=== PATIENT | female | born 1960 | race Caucasian/White ===

== ENCOUNTER 2017-10-31 08:50 | Day surgery (SDC) | payer OTHER ==
[~2017-10-31] VITALS: Ht 162.6 cm; Wt 118.6 kg
[~2017-10-31 08:50] MED LIST: CALCA400CH; Dicloxacillin500 MG; Hair, Skin & N1 EACH; MELO7.5; TERB250; Vitamin D400 UNI2; [UNRECOGNIZED DRUG - OTHER]
[2017-10-31] MEDS ORDERED: ASPI81CH PO (09:35)
[2017-10-31] MEDS ORDERED: PROBIOTIC1 EAC1 PO (09:36)
[2017-10-31] MEDS ORDERED: KRILL OIL500 MG PO ×2 (09:36)
[2017-10-31] MEDS ORDERED: ASCO500 PO (09:37)
== END 2017-10-31 12:00 | disposition home or self-care (01) ==
LOC: ORSCSDS 08:50
PROVIDERS: Internal Medicine Gastroenterology
PROC: 0DBP8ZX Excision of Rectum, Via Natural or Artificial Opening Endoscopic, Diagnostic (ICD-10-PCS; principal; 2017-10-31 10:15)
DX: R10.32 Left lower quadrant pain (principal); D12.8 Benign neoplasm of rectum; K64.8 Other hemorrhoids; Z86.010 Personal history of colon polyps
CPT/HCPCS: 88305; J2405; J7120

== ENCOUNTER → 2021-10-03 | Outpatient (CLI) | payer OTHER ==
[~2021-10-03] MED LIST changes: +ASCO500 PO; +ASPI81CH PO; +KRILL OIL500 MG PO; +PROBIOTIC1 EAC1 PO
== END | disposition home or self-care (01) ==
LOC: LAB SHORT 15:16
DX: D48.5 Neoplasm of uncertain behavior of skin (principal)
CPT/HCPCS: 88305

== ENCOUNTER 2022-09-12 06:42 | Day surgery (SDC) | payer OTHER ==
[~2022-09-12] VITALS: Ht 162.6 cm; Wt 107.0 kg
[~2022-09-12 06:42] MED LIST changes: -Hair, Skin & N1 EACH; +Hair, Skin & N1 EACH PO; +MCT OIL PO; +NAPR220 PO; +TURMERIC ROOT5000 GM PO; +VITAMIN D310 MC4 PO; +ZINC220 PO
--- NOTE | 2022-09-12 07:17 | NUR ---
History, Chart, Medications and Allergies reviewed before start of procedure. Patient confirms NPO status and agrees with scheduled surgery. Lungs clear T/O to Auscultation.
--- NOTE | 2022-09-12 10:33 | NUR ---
09/12/22 Jose3 Kelsie Ulrich PATIENT RECEIVED VANCO 1GM IN THE PREOP SETTING PRIOR TO ARRIVING IN THE OR.
--- NOTE | 2022-09-12 18:10 | NUR ---
SHIFT SUMMARY PT HAS DONE WELL POST OP. WORKED w/ THERAPY. UP TO CHAIR FOR DINNER. PAIN WELL CONTROLLED.
[2022-09-13 06:21] LABS: Bun/Creatinine Ratio 24.4 (12.0-20.0); Calcium, Blood 8.6 mg/dL (8.5-10.1); Creatinine, Blood 0.66 mg/dL (0.40-1.00); Potassium, Blood 5.2 mmol/L (3.5-5.5)
[2022-09-13] MEDS ORDERED: Percocet 5-3251 EACH PO (07:13)
[2022-09-13] MEDS ORDERED: ASPI81CH PO (07:13)
[2022-09-13 07:27] LABS: BASOPHILS ABSOLUTE AUTO 0.02 K/mm3 (0.00-0.23); BASOPHILS PERCENT AUTO 0 % (0-2); EOSINOPHILS PERCENT AUTO 0 % (0-6); Hematocrit 37.5 % (33.0-51.0); Hemoglobin 12.7 g/dL (11.5-16.0); IMMATURE GRAN ABSOLUTE AUTO 0.05 K/mm3 (0.00-0.10); IMMATURE GRAN PERCENT AUTO 0 % (0-1); LYMPHOCYTES ABSOLUTE AUTO 1.62 K/mm3 (0.84-5.20); LYMPHOCYTES PERCENT AUTO 9 % (21-46); MONOCYTES ABSOLUTE AUTO 1.28 K/mm3 (0.16-1.47); MONOCYTES PERCENT AUTO 7 % (4-13); Mean Corpuscular HGB 29.4 pg (26.0-34.0); Mean Corpuscular HGB Conc 33.9 g/dL (31.5-36.5); Mean Corpuscular Volume 87 fL (80-100); Mean Platelet Volume 10.9 fL (9.1-12.4); NEUTROPHILS ABSOLUTE AUTO 16.18 K/mm3 (1.96-9.15); NEUTROPHILS PERCENT AUTO 84 % (41-73); Platelet Count 287 K/mm3 (150-400); RDW Coefficient Variation 13.3 % (11.7-14.2); RDW Standard Deviation 42.5 fL (35.1-46.3); Red Blood Cell Count 4.32 M/mm3 (3.80-5.20); White Blood Cell Count 19.15 K/mm3 (4.00-11.30)
--- NOTE | 2022-09-13 09:47 | NUR ---
DISCHARGE NOTE: PATIENT WAS EDUCATED ON DISCHARGE INSTRUCTIONS. SHE VERBALIZED UNDERSTANDING OF INSTRUCTIONS AND HAD NO FURTHER QUESTIONS AT THIS TIME. PAIN IS MANAGED WITH ORAL PAIN MEDICATIONS. IV WAS TAKEN OUT AND WNL. HER LEFT KNEE HAS AN AQUACEL THAT IS C/D/I. DENIES NUMBNESS AND TINGLING. SHE IS A SBA WITH FWW AND GAIT BELT. SHE IS TOLERATING PO INTAKE AND IS VOIDING. PATIENT IS DRESSED AND HAS ITEMS IN THE ROOM GATHERED. SHE IS WAITING FOR HER AND ONCE HE IS HERE SHE WILL BE WHEELCHAIRED OUT TO HIS CAR TO BE TAKEN HOME.
--- NOTE | 2022-09-13 10:17 | NUR ---
PATIENT IS BEING WHEELCHAIRED DOWN TO HER HUSBANDS CAR TO BE TAKEN HOME.
== END 2022-09-13 10:18 | disposition home or self-care (01) ==
LOC: ORSCMMR 06:42 → ORD 08:15 → ORSCMMR 08:15 → SURS 13:11 → ORSCMMR 09-13 10:18
PROVIDERS: Orthopaedic Surgery
PROC: 0SRD0JA Replacement of Left Knee Joint with Synthetic Substitute, Uncemented, Open Approach (ICD-10-PCS; principal; 2022-09-12 08:15)
DX: M17.12 Unilateral primary osteoarthritis, left knee (principal); E66.01 Morbid (severe) obesity due to excess calories; Z68.41 Body mass index [BMI] 40.0-44.9, adult
CPT/HCPCS: 36415; 73560-LT; 80048; 85025; 97110; 97116; 97162; A9270; C1776; J0171; J0690; J0735; J1100; J1885; J2250; J2405; J2704; J2795; J3010; J3370; J7120

== ENCOUNTER → 2023-04-10 | Outpatient (CLI) | payer OTHER ==
[~2023-04-10] MED LIST changes: +Percocet 5-3251 EACH PO
== END ==
LOC: PLD 15:21 → LAB SHORT 15:21
DX: D48.5 Neoplasm of uncertain behavior of skin (principal)
CPT/HCPCS: 88305

== ENCOUNTER → 2023-06-07 | Outpatient (CLI) | payer OTHER | END | disposition home or self-care (01) | LOC: LAB SHORT 15:07 → LAB 15:07 | DX: L08.0 Pyoderma (principal) | CPT/HCPCS: 87070; 87077; 87147; 87186; 87205 ==

== ENCOUNTER → 2023-06-28 | Outpatient (CLI) | payer OTHER | LOC: LAB SHORT 13:45 → LAB 13:45 | DX: L08.0 Pyoderma (principal) | CPT/HCPCS: 87070; 87205 ==

== ENCOUNTER 2023-11-13 08:52 | Day surgery (SDC) | payer MEDICARE, OTHER ==
[~2023-11-13] VITALS: Ht 160 cm; Wt 111.7 kg
[2023-11-13] VITALS (8 sets, daily range): BP systolic 126–153; BP diastolic 68–89
[~2023-11-13 08:52] MED LIST changes: +IBUP800 PO; +QUERCETIN500 MG PO
[2023-11-13] MEDS ORDERED: Acetaminophen 500 MG Tab PO SCH ×2 (09:00→16:00)
[2023-11-13] MEDS ORDERED: Lactated Ringer's 1,000 ML IV SCH ×2 (09:00→11:20)
[2023-11-13] MEDS ORDERED: OxyCODONE HCL 10 MG TABCR PO SCH (09:00)
[2023-11-13] MEDS ORDERED: Ropivacaine 0.5% HCl/Pf 67.75 MG,EPINEPHrine HCL 0.25 MG,Ketorolac Tromethamine 15 MG,C... INFIL SCH (09:00)
[2023-11-13] MEDS ORDERED: Chlorhexidine Mouth Care 15 ML UDC MT SCH (09:00)
[2023-11-13] MEDS ORDERED: CeFAZolin Sodium 2,000 MG in NS 50 ML IV SCH ×2 (09:25→19:45)
[2023-11-13] MEDS ORDERED: NS IV SCH (09:25)
[2023-11-13] MEDS ORDERED: TRANEXAMIC ACID IV SCH (09:25)
--- NOTE | 2023-11-13 09:58 | NUR ---
Ambulatory in Day Surgery History, Chart, Medications and Allergies reviewed before start of procedure.Lungs clear T/O to Auscultation. Patient confirms NPO status and agrees with scheduled surgery. Pre-Op teaching done. Pt verbalizes understanding. Surgical site prepped with 2% Chlorhexidine cloth wipe.
[2023-11-13] MEDS ORDERED: Bisacodyl 10 MG Supp PR PRN (11:15)
[2023-11-13] MEDS ORDERED: Promethazine HCl 25 MG Tab PO PRN (11:15)
[2023-11-13] MEDS ORDERED: Magnesium Hydroxide Conc 10 ML UDC PO PRN (11:20)
[2023-11-13] MEDS ORDERED: Ondansetron HCl 2 MG / ML 2ML Vial IV PRN (11:20)
[2023-11-13] MEDS ORDERED: Metoclopramide HCl 5MG / ML 2ML Vial IV PRN (11:20)
[2023-11-13] MEDS ORDERED: OxyCODONE HCL 5 MG TAB PO PRN ×2 (11:20)
[2023-11-13] MEDS ORDERED: DiphenhydrAMINE HCL 25 MG Cap PO PRN (11:25)
[2023-11-13] MEDS ORDERED: HYDROmorphone HCl/Pf 1MG SYR IV PRN (11:25)
[2023-11-13] MEDS ORDERED: FLU VACC QS2023-24(6MOS UP)/PF 60 MCG/0.5 ML SYRINGE IM SCH (11:25)
[2023-11-13] MEDS ORDERED: FentaNYL Citrate 50 MCG/ML 2 ML Injection ONE (11:34)
[2023-11-13] MEDS ORDERED: propofoL 40 ML IV ONE (11:34)
[2023-11-13] MEDS ORDERED: Metoclopramide HCl 5MG / ML 2ML Vial ONE (12:12)
[2023-11-13] MEDS ORDERED: Dexamethasone Sod Phos 10 MG/ML 1ML VIAL ONE (12:12)
[2023-11-13] MEDS ORDERED: Ondansetron HCl 2 MG / ML 2ML Vial ONE (12:12)
--- NOTE | 2023-11-13 12:25 | NUR ---
11/13/23 1225 Deirdre Miranda SPINAL NERVE BLOCK COMPLETED BY DR. PRESTON UPON ENTRY TO OR. PT TOLERATED WELL. LMA ALSO PLACED BY DR. LUONG
--- NOTE | 2023-11-13 14:33 | NUR ---
Pt. is awake and welcomes my visit. Pt. is pleasant. Nurse Matilde is present and informs me that Pt. is fresh out of suregery. Facilitate a life review. Begin to establish rapport when PT arrived. This director advertising excused himself and agreed with Pt. to return later.
[2023-11-13] MEDS ORDERED: Percocet 5-3251 EACH PO (16:58)
[2023-11-13] MEDS ORDERED: Aspir 8181 MG PO (16:59)
--- NOTE | 2023-11-13 17:28 | NUR ---
DISCHARGE SUMMARY S/P R TKA, AQUACEL CDI/ADRIAN/TEDS. A&OX4, VSS/RA, KOBE PO, VOIDING, AMB SBA FWW/GB IN ROOM AND IN HALLWAY, UP TO CHAIR, PAIN TREATED PER EMAR, IV DC'D. DISCUSSED WITH TOP BOTTOM ATTACHING MACHINE OPERATOR PT DESIRE TO GO HOME PT REPORTS FEELS STABLE AND READY FOR DISCHARGE. DC INS PROVIDED. PT AND REP UNDERSTANDING THOSE INSTRUCTIONS. LEFT FLOOR VIA WC WITH ONLINE USER EXPERIENCE STRATEGIST TO GO HOME WITH WITH ALL PERSONAL POSSESSIONS INCLUDING DC PACKET, AQUACEL DRESSINGS, POLAR MAXWELL; HAD SCRIPTS FILLED AND MEDS ARE IN HIS POSSESSION.
[2023-11-13] MEDS ORDERED: Ketorolac Tromethamine 15mg Vial IV SCH (18:00)
[2023-11-13] MEDS ORDERED: Docusate Sodium 100 MG Cap PO SCH (21:00)
[2023-11-13] MEDS ORDERED: QUERCETIN 500 MG PO SCH (21:00)
[2023-11-13] MEDS ORDERED: Zinc Sulfate 220 MG Cap (Provides 50MG) PO SCH (21:00)
[2023-11-14] MEDS ORDERED: Multivitamins/Minerals TAB PO SCH (09:00)
[2023-11-14] MEDS ORDERED: Aspirin 81 MG Chew PO SCH (09:00)
[2023-11-14] MEDS ORDERED: Cholecalciferol 1000 Unit Tablet (=25MCG) PO SCH (09:00)
== END 2023-11-13 17:33 | disposition home or self-care (01) ==
LOC: ORSCMMR 08:52 → ORD 10:00 → SURS 13:58 → ORSCMMR 17:33
PROVIDERS: Orthopaedic Surgery
PROC: 0SRC0JA Replacement of Right Knee Joint with Synthetic Substitute, Uncemented, Open Approach (ICD-10-PCS; principal; 2023-11-13 10:00)
DX: M17.11 Unilateral primary osteoarthritis, right knee (principal); Z96.652 Presence of left artificial knee joint; E66.01 Morbid (severe) obesity due to excess calories; Z68.41 Body mass index [BMI] 40.0-44.9, adult; Z79.82 Long term (current) use of aspirin
CPT/HCPCS: 73560-RT; 97110; 97161; A9270; C1713; C1776; J0171; J0690; J0735; J1100; J1885; J2405; J2704; J2765; J2795; J3010; J7120

== ENCOUNTER 2024-04-24 18:36 | Observation (INO) | payer MEDICARE, OTHER ==
[~2024-04-24] VITALS: Ht 162.6 cm; Wt 111.3 kg
[~2024-04-24 18:36] MED LIST changes: +Aspir 8181 MG PO
[2024-04-24] MEDS ORDERED: Ampicillin Sod/Sulbactam Sod 3 GM in NS 100 ML IV ONE (21:40)
[2024-04-24] MEDS ORDERED: NS 1,000 ML IV SCH ×2 (21:45→22:55)
[2024-04-24] MEDS ORDERED: FentaNYL Citrate 50 MCG/ML 2 ML Injection IV PRN (22:55)
[2024-04-24] MEDS ORDERED: Ondansetron HCl 2 MG / ML 2ML Vial IV PRN (22:55)
[2024-04-24] MEDS ORDERED: Acetaminophen 325 MG TABLET PO PRN (22:55)
[2024-04-25] VITALS (19 sets, daily range): BP systolic 133–161; BP diastolic 63–95
--- NOTE | 2024-04-25 | NUR ---
ARRIVAL TO UNIT PT ARRIVED TO UNIT VIA GOURNEY. AMB IND TO BED. VSS. AGREEABLE TO NPO STATUS R/T ANTICIPATED SURGERY. PT REPORTS MIN PAIN, DENIES NAUSEA. ABD DISTENDED & FIRM. TOILETS INDEPENDENTLY. IV FLUIDS INFUSING PER EMAR. ORIENTED TO ROOM, CALL LIGHT IN REACH, BED IN LOWEST POSITION.
[2024-04-25 04:42] LABS: BASOPHILS ABSOLUTE AUTO 0.03 K/mm3 (0.00-0.23); BASOPHILS PERCENT AUTO 0 % (0-2); EOSINOPHILS ABSOLUTE AUTO 0.18 K/mm3 (0.00-0.68); EOSINOPHILS PERCENT AUTO 2 % (0-6); Hematocrit 37.1 % (33.0-51.0); Hemoglobin 12.5 g/dL (11.5-16.0); IMMATURE GRAN ABSOLUTE AUTO 0.08 K/mm3 (0.00-0.10); IMMATURE GRAN PERCENT AUTO 1 % (0-1); LYMPHOCYTES ABSOLUTE AUTO 1.83 K/mm3 (0.84-5.20); LYMPHOCYTES PERCENT AUTO 22 % (21-46); MONOCYTES ABSOLUTE AUTO 0.81 K/mm3 (0.16-1.47); MONOCYTES PERCENT AUTO 10 % (4-13); Mean Corpuscular HGB 29.4 pg (26.0-34.0); Mean Corpuscular HGB Conc 33.7 g/dL (31.5-36.5); Mean Corpuscular Volume 87 fL (80-100); Mean Platelet Volume 10.5 fL (9.1-12.4); NEUTROPHILS ABSOLUTE AUTO 5.59 K/mm3 (1.96-9.15); NEUTROPHILS PERCENT AUTO 66 % (41-73); Platelet Count 321 K/mm3 (150-400); RDW Coefficient Variation 13.9 % (11.7-14.2); RDW Standard Deviation 44.8 fL (35.1-46.3); Red Blood Cell Count 4.25 M/mm3 (3.80-5.20); White Blood Cell Count 8.52 K/mm3 (4.00-11.30)
[2024-04-25 05:09] LABS: Albumin, Blood 2.3 g/dL (3.4-5.0); Albumin/Globulin Ratio 0.6 (0.8-1.8); Bilirubin, Total 0.4 mg/dL (0.1-1.0); Bun/Creatinine Ratio 15.5 (12.0-20.0); Calcium, Blood 8.1 mg/dL (8.5-10.1); Creatinine, Blood 0.77 mg/dL (0.40-1.00); Globulin, Blood 3.6 g/dL (2.2-4.0); Potassium, Blood 3.6 mmol/L (3.5-5.5); Total Protein, Blood 5.9 g/dL (6.4-8.2)
[2024-04-25] MEDS ORDERED: Ampicillin Sod/Sulbactam Sod 3 GM in NS 100 ML IV SCH (06:00)
--- NOTE | 2024-04-25 06:07 | NUR ---
SHIFT SUMMAR S/P N/V/D SINCE 04.15.24. NO ACUTE CHANGES OVERNIGHT. VSS. NPO, IV FLUIDS/ABX INFUSING PER EMAR. NO REPORTS OF NAUSEA. TOILETING/AMBULATING IND. PT REPORTS PAIN TOLERABLE. ANTICIPATED SURGERY LATER TODAY. CALL LIGHT IN REACH, BED IN LOWEST POSITION, WILL REPORT TO DAY RN.
[2024-04-25] MEDS ORDERED: Lactated Ringer's 1,000 ML IV SCH (08:30)
--- NOTE | 2024-04-25 10:47 | NUR ---
RAC #[id number] PIV-SITE CLEAR/FLUSHES WELL.
--- NOTE | 2024-04-25 10:53 | NUR ---
INTO SDS VIA [employer].PT A&OX4. REPORTS 10/10 ABDOMINAL.HISTORY AND ALLERGIES REVIEWED. LUNGS CLEAR.SATS 100% ON RA. NO NOTED SOB. NPO STATUS CONFIRMED. CHLORHEXIDINE WIPE TO ABDOMEN.
[2024-04-25] MEDS ORDERED: Bupivacaine 0.5% Inj 50 ML Vial ONE ×2 (11:43→12:01)
[2024-04-25] MEDS ORDERED: FentaNYL Citrate 50 MCG/ML 2 ML Injection ONE ×3 (12:03→12:54)
[2024-04-25] MEDS ORDERED: propofoL 20 ML IV ONE (12:03)
[2024-04-25] MEDS ORDERED: Rocuronium Bromide 10 MG/ML 5ML Injection IV ONE ×2 (12:05→13:28)
[2024-04-25] MEDS ORDERED: SuccINYLCHOLINE Chloride 100 MG/5 ML 5MLSYR ONE (12:05)
[2024-04-25] MEDS ORDERED: Bupivacaine 0.5% Inj 10 ML Vial ONE (12:07)
[2024-04-25] MEDS ORDERED: Dexamethasone Sod Phos 10 MG/ML 1ML VIAL ONE (12:09)
[2024-04-25] MEDS ORDERED: Ondansetron HCl 2 MG / ML 2ML Vial ONE (12:09)
[2024-04-25] MEDS ORDERED: Ketorolac Tromethamine 30mg Vial ONE (12:30)
[2024-04-25] MEDS ORDERED: Sugammadex Sodium 200 MG/2ML SDV (100 MG/ML) ONE (13:28)
[2024-04-25] MEDS ORDERED: OxyCODONE HCL 5 MG TAB PO PRN (13:50)
[2024-04-25] MEDS ORDERED: Ketorolac Tromethamine 30mg Vial IV PRN (13:55)
--- NOTE | 2024-04-25 15:15 | NUR ---
POST OP: REPORT RECEIVED FROM CAR CUSTOMIZER. PT TO UNIT AT ABOUT 1455. A/O, VSS. SURGICAL SITES AND PARAG WNL. BRIGHT RED BLOOD IN PARAG DRAIN. PT DENIES PAIN OR N/V AT THIS TIME. PT GIVEN CALL LIGHT AND INSTRUCTED TO CALL STAFF WHEN NEEDS OOB THE FIRST TIME. PT AT BEDSIDE
--- NOTE | 2024-04-25 18:30 | NUR ---
SUMMARY: PT HAS DONE WELL SINCE POST OP. SURGICAL SITES WNL. PT KOBE DIET, NO N/V. PAIN APPEARS TO BE MANAGED WITH 2 OXYCODONE. PT ABLE TO WALK TO BATHROOM AND VOID. NO SAFETY CONCERNS AT THIS TIME. CALL LIGHT IN REACH
[2024-04-26 03:16] VITALS: BP 119/60
--- NOTE | 2024-04-26 06:14 | NUR ---
NOC SHIFT ASSESSMENT PT IS ORIENTED X4 OVERNIGHT, SLEPT INTERMITTENTLY. VSS, PAIN WELL CONTROLLED WITH CURRENT REGIMEN, HOWEVER PT MENTIONS ITCHING THIS MORNING AND FEELS IF SHE REMEMBERS HAVING THIS SAME ISSUE PREVIOUSLY WITH OXYCODONE. ADDED AN ALLERGY AND NOTIFIED ON-CALL PROVIDER AND PER DR. IBARRA CHANGE TO NORCO . LAP SITE WNL, CDI AND APPROXIMATED. ABD SOFT AND TENDER, HYPOACTIVE BOWEL SOUNDS. PARAG TO RLQ WITH SS OUTPUT @ 75ML TOTAL FOR SHIFT. VOIDED ADUATELY, UP SBA.
[2024-04-26] MEDS ORDERED: HYDROcodone 5-APAP 325 TAB PO PRN (06:50)
[2024-04-26 07:21] VITALS: BP 187/89
[2024-04-26 14:06] VITALS: BP 166/69
--- NOTE | 2024-04-26 17:53 | NUR ---
SHIFT SUMMARY POD1 LAP Nelson TAO/OX4, VSS, TOLERATING PO, INDEPENDENT IN THE ROOM AND HALLS, PARAG DRESSING CHANGED THIS SHIFT, SS DRAINAGE PER PARAG, IV ABX PER EMAR. NO ACUTE EVENTS THIS SHIFT, CALL LIGHT IN REACH
[2024-04-26 18:27] VITALS: BP 176/86
[2024-04-27 03:21] VITALS: BP 144/71
--- NOTE | 2024-04-27 04:27 | NUR ---
SHIFT SUMMARY: LOLI IS A&OX4. VSS, NO ACUTE EVENTS OVERNIGHT. TELE SHOWS NSR IN THE 80'S. SHE HAS DENIED THE NEED FOR PAIN MEDICATION THIS SHIFT AND DENIES ANY DIFFICULTY URINATING. LAP SITES C/D&I, PARAG DRAIN WITH MINIMAL SEROSANGEINOUS FLUID OUTPUT. SHE REPORTS TOLERATING PO INTAKE WELL AND IS INDEPEDNENT IN THE ROOM. IV TO R AC PATENT, SALINE LOCKED. SHE IS LYING IN BED WITH THE CALL LIGHT IN REACH. WILL GIVE REPORT TO DAY SHIFT RN.
[2024-04-27 04:53] LABS: BASOPHILS ABSOLUTE AUTO 0.04 K/mm3 (0.00-0.23); BASOPHILS PERCENT AUTO 0 % (0-2); EOSINOPHILS ABSOLUTE AUTO 0.12 K/mm3 (0.00-0.68); EOSINOPHILS PERCENT AUTO 1 % (0-6); Hematocrit 35.2 % (33.0-51.0); Hemoglobin 11.5 g/dL (11.5-16.0); IMMATURE GRAN ABSOLUTE AUTO 0.09 K/mm3 (0.00-0.10); IMMATURE GRAN PERCENT AUTO 1 % (0-1); LYMPHOCYTES ABSOLUTE AUTO 2.39 K/mm3 (0.84-5.20); LYMPHOCYTES PERCENT AUTO 24 % (21-46); MONOCYTES ABSOLUTE AUTO 0.79 K/mm3 (0.16-1.47); MONOCYTES PERCENT AUTO 8 % (4-13); Mean Corpuscular HGB Conc 32.7 g/dL (31.5-36.5); Mean Corpuscular Volume 89 fL (80-100); Mean Platelet Volume 10.4 fL (9.1-12.4); NEUTROPHILS ABSOLUTE AUTO 6.38 K/mm3 (1.96-9.15); NEUTROPHILS PERCENT AUTO 65 % (41-73); Platelet Count 330 K/mm3 (150-400); RDW Coefficient Variation 13.8 % (11.7-14.2); RDW Standard Deviation 45.2 fL (35.1-46.3); Red Blood Cell Count 3.96 M/mm3 (3.80-5.20); White Blood Cell Count 9.81 K/mm3 (4.00-11.30)
[2024-04-27 05:43] LABS: Albumin, Blood 2.3 g/dL (3.4-5.0); Albumin/Globulin Ratio 0.6 (0.8-1.8); Bilirubin, Total 0.3 mg/dL (0.1-1.0); Bun/Creatinine Ratio 13.5 (12.0-20.0); Creatinine, Blood 0.74 mg/dL (0.40-1.00); Globulin, Blood 3.6 g/dL (2.2-4.0); Potassium, Blood 3.5 mmol/L (3.5-5.5); Total Protein, Blood 5.9 g/dL (6.4-8.2)
[2024-04-27 07:11] VITALS: BP 139/86
[2024-04-27] MEDS ORDERED: HYDR1TAB94 PO (12:06)
--- NOTE | 2024-04-27 13:13 | NUR ---
DISCHARGE SUMMARY S/P LAP DINH, A/OX4, VSS, TOLERATING PO, INDEPENDENT IN THE HALLS, AMBULATES WELL, VOIDING INDEPENDENTLY, PAIN WELL MANAGED. PARAG REMOVED BY SURGERY THIS AM. DISCUSSED DC INSTRUCTIONS INCLUDING HOME CARE, MEDICATIONS, AND FOLLOW UP APPOINTMENTS, REMOVED IV JUST PRIOR TO DC. ESCORTED OUT VIA WC TO PRIVATE AUTO TO GO HOME.
== END 2024-04-27 12:00 | disposition home or self-care (01) ==
LOC: ER 18:36 → SURS 18:37
PROVIDERS: Surgery; ADMIT Internal Medicine
PROC: 0FT44ZZ Resection of Gallbladder, Percutaneous Endoscopic Approach (ICD-10-PCS; principal; 2024-04-25 12:30)
DX: K80.12 Calculus of gallbladder with acute and chronic cholecystitis without obstruction (principal); K76.0 Fatty (change of) liver, not elsewhere classified; Z79.82 Long term (current) use of aspirin; Z79.899 Other long term (current) drug therapy; R79.1 Abnormal coagulation profile; J98.11 Atelectasis; K82.8 Other specified diseases of gallbladder; R11.2 Nausea with vomiting, unspecified; R06.00 Dyspnea, unspecified
CPT/HCPCS: 36415; 71046; 71260; 76705; 80048; 80053; 80076; 82150; 83690; 83880; 85025; 85379; 88304; 96361; 96365; 96366; 99285-25; A9270; C1729; G0378; J0295; J0330; J1100; J1885; J2405; J2704; J3010; J7030; J7120; Q9967